=== PATIENT | female | born 1975 | race American Indian/Alaskan Native ===

== ENCOUNTER 2017-05-24 12:20 | Emergency (ER) | payer SELFPAY ==
[2017-05-24] MEDS ORDERED: TYLENOL PO ONE (14:55)
--- NOTE | 2017-05-24 14:59 | Emergency Department Report ---
ED ENT HPI - General Chief complaint: Dental/Oral Stated complaint: SWELLING AND TOOTHPAIN Time Seen by Provider: 05/24/17 14:42 Source: patient Mode of arrival: Ambulatory Limitations: No Limitations - History of Present Illness Initial comments: 41-year-old female past medical history hypertension, chronic arthritis, chronic neuropathy presents with complaint of acute on chronic left upper dental pain. Patient states that she has had a cavity in one of her molars for some time but has not yet had it adjusted by a dentist. Denies any fevers chills nausea or vomiting. Speaking in full sentences. No audible wheezing or stridor. Patient states she moved to this area over the last month and is also requesting refills on meloxicam and her hypertension medicines. Patient is awake alert and oriented 3 not in acute distress. MD complaint: tooth pain -: month(s) Location: tooth # 1 - Cavity Severity scale (0 -10): 4 Quality: aching Consistency: intermittent Improves with: none Worsens with: none Context- Dental: history of dental caries, poor dental care Associated Symptoms: toothache - Related Data Previous Rx's Medication Instructions Recorded Last Taken Type Acetaminophen/Codeine [Tylenol 1 tab PO Q6H PRN #10 tab 05/24/17 Unknown Rx /Codeine # 3 tab] Amoxicillin [Trimox CAP] 500 mg PO Q8H #30 capsule 05/24/17 Unknown Rx Benzocaine [Orajel Liquid 20%] 1 ml MM Q6HR PRN #1 bottle 05/24/17 Unknown Rx Losartan/Hydrochlorothiazide 1 each PO QDAY #30 tablet 05/24/17 Unknown Rx [Losartan-Hctz 100-25 mg Tab] Meloxicam 7.5 mg PO QDAY PRN #30 tablet 05/24/17 Unknown Rx Allergies Allergy/AdvReac Type Severity Reaction Status Date / Time tramadol AdvReac Nausea Verified 05/24/17 12:47 ED Dental HPI - General Chief complaint: Dental/Oral Stated complaint: SWELLING AND TOOTHPAIN Time Seen by Provider: 05/24/17 14:42 Source: patient Mode of arrival: Ambulatory Limitations: No Limitations - Related Data Previous Rx's Medication Instructions Recorded Last Taken Type Acetaminophen/Codeine [Tylenol 1 tab PO Q6H PRN #10 tab 05/24/17 Unknown Rx /Codeine # 3 tab] Amoxicillin [Trimox CAP] 500 mg PO Q8H #30 capsule 05/24/17 Unknown Rx Benzocaine [Orajel Liquid 20%] 1 ml MM Q6HR PRN #1 bottle 05/24/17 Unknown Rx Losartan/Hydrochlorothiazide 1 each PO QDAY #30 tablet 05/24/17 Unknown Rx [Losartan-Hctz 100-25 mg Tab] Meloxicam 7.5 mg PO QDAY PRN #30 tablet 05/24/17 Unknown Rx Allergies Allergy/AdvReac Type Severity Reaction Status Date / Time tramadol AdvReac Nausea Verified 05/24/17 12:47 ED Review of Systems ROS: Stated complaint: SWELLING AND TOOTHPAIN Other details as noted in HPI Constitutional: denies: chills, fever Eyes: denies: eye pain, eye discharge, vision change ENT: dental pain. denies: ear pain, throat pain Respiratory: denies: cough, shortness of breath, wheezing Cardiovascular: denies: chest pain, palpitations Endocrine: no symptoms reported Gastrointestinal: denies: abdominal pain, nausea, diarrhea Genitourinary: denies: urgency, dysuria, discharge Musculoskeletal: denies: back pain, joint swelling, arthralgia Skin: denies: rash, lesions Neurological: denies: headache, weakness, paresthesias Psychiatric: denies: anxiety, depression Hematological/Lymphatic: denies: easy bleeding, easy bruising ED Past Medical Hx - Past Medical History Previous Medical History?: No Hx Hypertension: Yes Additional medical history: neuropathy in wrist - Surgical History Hx Appendectomy: Yes Additional Surgical History: ,right foot,bilateral carpel tunnel - Social History Smoking Status: Never Smoker Substance Use Type: None - Medications Home Medications: Home Medications Medication Instructions Recorded Confirmed Last Taken Type Acetaminophen/Codeine [Tylenol 1 tab PO Q6H PRN #10 tab 05/24/17 Unknown Rx /Codeine # 3 tab] Amoxicillin [Trimox CAP] 500 mg PO Q8H #30 capsule 05/24/17 Unknown Rx Benzocaine [Orajel Liquid 20%] 1 ml MM Q6HR PRN #1 bottle 05/24/17 Unknown Rx Losartan/Hydrochlorothiazide 1 each PO QDAY #30 tablet 05/24/17 Unknown Rx [Losartan-Hctz 100-25 mg Tab] Meloxicam 7.5 mg PO QDAY PRN #30 tablet 05/24/17 Unknown Rx ED Physical Exam - General Limitations: No Limitations General appearance: alert, in no apparent distress - Head Head exam: Present: atraumatic, normocephalic - Eye Eye exam: Present: normal appearance, PERRL, EOMI - ENT ENT exam: Present: mucous membranes moist - Expanded ENT Exam Expanded Teeth exam: Present: dental tenderness # 1 - Dental Tenderness (some dental tenderness and visible cavity here) Throat exam: Positive: normal inspection - Neck Neck exam: Present: normal inspection, full ROM - Respiratory Respiratory exam: Present: normal lung sounds bilaterally. Absent: respiratory distress - Cardiovascular Cardiovascular Exam: Present: regular rate, normal rhythm. Absent: systolic murmur, diastolic murmur, rubs, gallop - GI/Abdominal GI/Abdominal exam: Present: soft, normal bowel sounds - Extremities Exam Extremities exam: Present: normal inspection - Back Exam Back exam: Present: normal inspection - Neurological Exam Neurological exam: Present: alert, oriented X3 - Psychiatric Psychiatric exam: Present: normal affect, normal mood - Skin Skin exam: Present: warm, dry, intact, normal color. Absent: rash ED Course Vital Signs 05/24/17 12:43 Temperature 98.9 F Pulse Rate 74 Respiratory 18 Rate Blood Pressure 174/89 O2 Sat by Pulse 99 Oximetry ED Medical Decision Making - Medical Decision Making A/P: dental cavity, toothache, medication refill 1- amoxicillin ten-day course, Orajel when necessary, short course codeine when necessary 2- I provided patient with information for multiple dental clinics to follow up and stressed the importance of dental follow-up as he has multiple cavities that require dental fixation or instrumentation 3- no clinical signs of facial abscess, no Alfred's angina, no induration or cellulitis of floor of mouth or tongue 4- refill on meloxicam and losartan hydrochlorothiazide Critical care attestation.: If time is entered above; I have spent that time in minutes in the direct care of this critically ill patient, excluding procedure time. ED Disposition Clinical Impression: Medication refill, Toothache Disposition: TO HOME OR SELFCARE Is pt being admited?: No Does the pt Need Aspirin: No Condition: Stable Instructions: Dental Caries (ED), Toothache (ED) Prescriptions: Acetaminophen/Codeine [Tylenol /Codeine # 3 tab] 1 tab PO Q6H PRN #10 tab PRN Reason: Pain Amoxicillin [Trimox CAP] 500 mg PO Q8H #30 capsule Benzocaine [Orajel Liquid 20%] 1 ml MM Q6HR PRN #1 bottle PRN Reason: Toothache Losartan/Hydrochlorothiazide [Losartan-Hctz 100-25 mg Tab] 1 each PO QDAY #30 tablet Meloxicam 7.5 mg PO QDAY PRN #30 tablet PRN Reason: Pain Referrals: [facility] [place] - 3-5 Days [facility] [Outside] - 3-5 Days [facility] [Outside] - 3-5 Days Time of Disposition: 14:58
[2017-05-24 15:22] VITALS: BP 166/107
== END 2017-05-24 15:21 | disposition home or self-care (01) ==
LOC: ED 12:20
DX: K08.89 Other specified disorders of teeth and supporting structures (principal); I10 Essential (primary) hypertension
CPT/HCPCS: 99282